=== PATIENT | female | born 1980 | race Caucasian/White ===

== ENCOUNTER 2018-07-15 07:20 | Day surgery (SDC) | payer BC, MEDICAID ==
[~2018-07-15 07:20] MED LIST: Clindamycin Phosphate in D5W 900 MG in Premix Bag 1 BAG IV SCH; Sodium Chloride 0.9% 10 ML SDV IV PRN; Sodium Chloride 0.9% 10 ML Syringe FLUSH PRN; Sodium Chloride 0.9% 2.5 ML Syringe FLUSH PRN
--- NOTE | 2018-07-15 08:38 | PCM.PREANE ---
Preanesthetic Assessment - Anesthesia/Transfusion/Family Hx Anesthesia History: Prior Anesthesia Without Reaction Family History of Anesthesia Reaction: No Transfusion History: No Prior Transfusion(s) Intubation History: Unknown - Review of Systems General: No Symptoms Pulmonary: No Symptoms Cardiovascular: No Symptoms Gastrointestinal: No Symptoms Neurological: No Symptoms Other: Reports: None - Physical Assessment Height: 5 ft 3.75 in Weight: 60.781 kg ASA Class: 2 Mental Status: Alert & Oriented x3 Airway Class: Mallampati = 2 Dentition: Reports: Normal Dentition Thyro-Mental Finger Breadths: 3 Mouth Opening Finger Breadths: 3 ROM/Head Extension: Full Lungs: Clear to Auscultation, Normal Respiratory Effort Cardiovascular: Regular Rate, Regular Rhythm - Allergies Allergies/Adverse Reactions: Allergies Allergy/AdvReac Type Severity Reaction Status Date / Time Penicillins Allergy Hives Verified 06/19/18 08:05 Sulfa (Sulfonamide Allergy Rash Verified 06/19/18 08:05 Antibiotics) - Blood Blood Available: No - Anesthesia Plan Pre-Op Medication Ordered: None - Acknowledgements Anesthesia Type Planned: MAC (general anesthesia back-up plan) Pt an Appropriate Candidate for the Planned Anesthesia: Yes Alternatives and Risks of Anesthesia Discussed w Pt/Guardian: Yes Pt/Guardian Understands and Agrees with Anesthesia Plan: Yes PreAnesthesia Questionnaire - Past Health History Medical/Surgical History: Denies Medical/Surgical History HEENT History: Reports: None Cardiovascular History: Reports: None Respiratory History: Reports: Asthma Other Respiratory History: exercise induced asthma Gastrointestinal History: Reports: None Genitourinary History: Reports: None [employer] OR [employer] History: Reports: Musculoskeletal History: Reports: None Neurological History: Reports: None Psychiatric History: Reports: None Endocrine/Metabolic History: Reports: None Hematologic History: Reports: None Immunologic History: Reports: None Oncologic (Cancer) History: Reports: None Dermatologic History: Reports: None - Past Surgical History Head Surgeries/Procedures: Reports: None HEENT Surgical History: Reports: Adenoidectomy, Oral Surgery, Tonsillectomy Cardiovascular Surgical History: Reports: None Respiratory Surgical History: Reports: None GI Surgical History: Reports: None Female Surgical History: Reports: None Endocrine Surgical History: Reports: None Neurological Surgical History: Reports: None Musculoskeletal Surgical History: Reports: None Oncologic Surgical History: Reports: None Dermatological Surgical History: Reports: Other (See Below) (exc. scalp lesion under local anesthesia only) - SUBSTANCE USE Smoking Status *Q: Former Smoker Tobacco Use Within Last Twelve Months: No Recreational Drug Use History: No - HOME MEDS Home Medications: Home Meds Ascorbate Calcium [Vitamin C] 1 tab PO DAILY 06/19/18 [History] Biotin 1 tab.chew CHEW DAILY 06/19/18 [History] Desogestrel-Ethinyl Estradiol [Juleber 28 Day Tablet] 1 tab PO DAILY 06/19/18 [ History] Fish Oil/[place]-3 Fatty Acids [Fish Oil 1,000 MG] 1 tab PO DAILY 06/19/18 [ History] Multivitamin [Multivitamins] 1 tab PO DAILY 06/19/18 [History] - CURRENT (IN HOUSE) MEDS Current Meds: Current Medications Clindamycin Phosphate 900 mg/ (Premix) 50 mls @ 100 mls/hr IV ONETIME ISABEL Last Admin: 07/15/18 08:19 Dose: 100 mls/hr Sodium Chloride (Saline Flush) 10 ml FLUSH ASDIRECTED PRN PRN Reason: Keep Vein Open Sodium Chloride (Saline Flush) 2.5 ml FLUSH ASDIRECTED PRN PRN Reason: Keep Vein Open Sodium Chloride (Normal Saline) 10 ml IV ASDIRECTED PRN PRN Reason: IV Use
[2018-07-15] MEDS ORDERED: Propofol 200 MG/20 ML SDV ONE ×2 (08:40→08:59)
[2018-07-15] MEDS ORDERED: fentaNYL 100 MCG/2 ML SDV ONE (08:40)
[2018-07-15] MEDS ORDERED: Midazolam 1 MG/ML 2 ML SDV ONE (08:40)
[2018-07-15] MEDS ORDERED: Lactated Ringers 1,000 ML IV SCH (09:00)
[2018-07-15] MEDS ORDERED: Lidocaine 1% with EPINEPHrine 1:100,000 10 ML MDV ONE (09:32)
[2018-07-15] MEDS ORDERED: fentaNYL 100 MCG/2 ML SDV IVPUSH PRN (09:45)
[2018-07-15] MEDS ORDERED: HYDROmorphone 2 MG/ML SDV IVPUSH ONE (09:45)
--- NOTE | 2018-07-15 10:05 | PCM.POSTAN ---
POST ANESTHESIA ASSESSMENT - MENTAL STATUS Mental Status: Alert, Oriented - RESPIRATORY Respiratory Status: Respiratory Rate WNL, Airway Patent, O2 Saturation Stable - CARDIOVASCULAR CV Status: Pulse Rate WNL, Blood Pressure Stable - GASTROINTESTINAL GI Status: No Symptoms - PAIN Pain Score: 0 - POST OP HYDRATION Hydration Status: Adequate & Stable - OBSERVATIONS Free Text/Narrative:: No anesthesia problems.Patient skipped recovery room stage of postoperative care.
--- NOTE | 2018-07-15 10:06 | PCM.OPNOTE ---
- General Post-Op/Procedure Note Date of Surgery/Procedure: 07/15/18 Operative Procedure(s): Excision right labial cyst Findings: Loculated right labial cyst approximately 2 cm in size Pre Op Diagnosis: Symptomatic right labial cyst Post-Op Diagnosis: Same Anesthesia Technique: Local, MAC Primary Surgeon: Elly Smith Pathology: right labial tissue with cyst Fluid Replacement, Intraop: 800 EBL in mLs: 5 Complications: none known Condition: Good Free Text/Narrative:: Dictation [id number]
--- NOTE | 2018-07-15 17:18 | OR ---
SURGEON: Elly Smith M.D. DATE OF PROCEDURE: 07/15/2018 PREOPERATIVE DIAGNOSIS: Symptomatic right labial cyst. POSTOPERATIVE DIAGNOSIS: Symptomatic right labial cyst. PROCEDURE: Excision of right labial cyst. ANESTHESIA: MAC/local. ESTIMATED BLOOD LOSS: 10 mL. FLUIDS: 800 mL of crystalloid. COMPLICATIONS: None. FINDINGS: Approximately 2 cm loculated right labial cyst. DISPOSITION: The patient to PACU, stable. SPECIMENS: To Pathology. INDICATIONS: Savi is a 38-year-old female who has ongoing symptomatology related to a right labial cyst. It most likely is the result of previous obstetrical trauma and now has inclusion cyst that seems to be growing in size, became increasingly symptomatic with tenderness and discomfort when rubbing along clothing. Options discussed, and at this point, she would like to proceed with surgical intervention. Risks of procedure discussed. Proper consent obtained. PROCEDURE DETAILS: The patient was taken to the operating room where she underwent a MAC anesthetic, was placed in the modified dorsal lithotomy position, and was prepped and draped in the usual sterile fashion. Bladder was drained. Time-out was held. The region of the cyst was grasped with an Allis clamp, and a V-wedge section of tissue was now excised using 10 blade scalpel to completely excise the cystic tissue. Specimen will be sent to pathology. The base of this was now cauterized, and the deep subcutaneous tissue was replicated using 3-0 Vicryl in continuous running fashion followed by reapproximation of the epithelial edges using 3-0 Vicryl in continuous running fashion. Hemostasis appeared evident. The region had been prepped with 1% lidocaine and epinephrine. There was a remnant of tissue just above this now that is redundant and appears that would be touching the clothing quite often also. Therefore, this region was prepped with 1% lidocaine and epinephrine and excised at the base of the redundancy, replicated with 3-0 Vicryl on an SH needle. Hemostasis appeared evident. Sponge, instrument, and needle count was correct x2. The patient tolerated the procedure well overall. Hemostasis evident. She will go to PACU in stable condition. Specimen to Pathology. RAFAEL / ROSA MARIA /[id number]
== END 2018-07-15 11:07 | disposition home or self-care (01) ==
LOC: MW.SDS 07:20
PROVIDERS: ATTEND Obstetrics & Gynecology
DX: N75.0 Cyst of Bartholin's gland (principal); N76.2 Acute vulvitis; J45.990 Exercise induced bronchospasm; Z88.0 Allergy status to penicillin; Z88.2 Allergy status to sulfonamides; Z87.891 Personal history of nicotine dependence; Z79.899 Other long term (current) drug therapy
CPT/HCPCS: 36415; 56740; 84703; 85027; 88305; A4217; J2250; J2704; J3010; J3490; J7120; 00940